=== PATIENT | female | born 1985 | race Caucasian/White ===

== ENCOUNTER 2023-04-16 15:17 | Inpatient (IN) | payer OTHER ==
[~2023-04-16] VITALS: Ht 139.7 cm; Wt 49.2 kg
[~2023-04-16 15:17] MED LIST: ALBU90OI INH; Ativan1 MG PO; B-1100 M1 PO; CEPH500 PO; DOCU100 PO; FOLI1 PO; FURO20 PO; LEVFLO500 PO; PANT40 PO; Prednisone10 MG PO; Prednisone50 MG PO; SM TUSSIN DM PO; SPIR25 PO; Vibramycin100 MG PO
[2023-04-16 16:08] LABS: BASOPHILS ABSOLUTE AUTO 0.05 K/mm3 (0.00-0.23); BASOPHILS PERCENT AUTO 1 % (0-2); EOSINOPHILS ABSOLUTE AUTO 0.12 K/mm3 (0.00-0.68); EOSINOPHILS PERCENT AUTO 1 % (0-6); Hematocrit 35.6 % (33.0-51.0); Hemoglobin 12.7 g/dL (11.5-16.0); IMMATURE GRAN PERCENT AUTO 2 % (0-1); LYMPHOCYTES ABSOLUTE AUTO 2.16 K/mm3 (0.84-5.20); LYMPHOCYTES PERCENT AUTO 20 % (21-46); MONOCYTES ABSOLUTE AUTO 0.52 K/mm3 (0.16-1.47); MONOCYTES PERCENT AUTO 5 % (4-13); Mean Corpuscular HGB 35.2 pg (26.0-34.0); Mean Corpuscular HGB Conc 35.7 g/dL (31.5-36.5); Mean Corpuscular Volume 99 fL (80-100); Mean Platelet Volume 10.9 fL (9.1-12.4); NEUTROPHILS ABSOLUTE AUTO 7.53 K/mm3 (1.96-9.15); NEUTROPHILS PERCENT AUTO 71 % (41-73); NRBC ABSOLUTE 0.02 K/mm3 (0.00-0.02); NRBC Auto 0.2 /100 WBC (0.0-0.2); Platelet Count 203 K/mm3 (150-400); RDW Coefficient Variation 16.9 % (11.7-14.2); RDW Standard Deviation 61.5 fL (35.1-46.3); Red Blood Cell Count 3.61 M/mm3 (3.80-5.20); White Blood Cell Count 10.58 K/mm3 (4.00-11.30)
[2023-04-16] MEDS ORDERED: Ativan1 MG PO (16:09)
[2023-04-16] MEDS ORDERED: FUROSEMIDE20 MG PO (16:10)
[2023-04-16 17:13] LABS: Albumin, Blood 2.4 g/dL (3.4-5.0); Albumin/Globulin Ratio 0.7 (0.8-1.8); Bilirubin, Total 1.2 mg/dL (0.1-1.0); Calcium, Blood 7.1 mg/dL (8.5-10.1); Creatinine, Blood 0.5 mg/dL (0.40-1.00); Globulin, Blood 3.5 g/dL (2.2-4.0); Potassium, Blood 2.2 mmol/L (3.5-5.5); Total Protein, Blood 5.9 g/dL (6.4-8.2)
[2023-04-16 20:26] LABS: Thyroid Stimulating Hormone 2.99 uIU/mL (0.360-4.800)
[2023-04-16 20:32] LABS: Magnesium, Blood 0.8 mg/dL (1.6-2.4)
[2023-04-16] MEDS ORDERED: CELEXA10 MG PO (21:05)
[2023-04-16] MEDS ORDERED: TRAZ50 PO (21:06)
[2023-04-16] MEDS ORDERED: Naltrexone HCl50 MG PO (21:06)
[2023-04-16 21:47] LABS: U Benzodiazapine Screen DETECTED
[2023-04-16 21:48] LABS: U Amphetamine Screen Not Detected; U Barbituate Screen DETECTED; U Buprenorphine Screen Not Detected; U Cannabinoids Screen Not Detected; U Cocaine Screen Not Detected; U Methadone Screen Not Detected; U Methamphetamine Screen Not Detected; U Opiates Screen Not Detected; U Oxycodone Screen Not Detected; U Phencyclidine Screen Not Detected; U Propoxyphene Screen Not Detected
[2023-04-16 21:54] VITALS: BP 95/77
[2023-04-16 22:00] VITALS: BP 101/83
[2023-04-16] MEDS ORDERED: EUTHYROX25 MC1 PO (22:08)
--- NOTE | 2023-04-16 22:58 | NUR ---
TRANSFER NOTE THIS RN RECEIVED REPORT FROM FARIBA THOMAS IN THE ED. PT AMBULATED FROM [facility] TO BED. PT IS A&O X4. PT ANSWERRED ALL QUESTIONS APPROPRIATELY, BUT TOOK A MINUTE TO COME UP WITH ANSWER. PT REPORT LAST DRINK BEING YESTERDAY 04/15/23, BUT STATES SHE HAS BEEN HAVING HALLUCINATIONS THE PAST SEVERAL DAYS AT HOME. PT DENIES HALLUCINATIONS AT THIS TIME. ONLY ANXIETY NOTED, WHICH PT HAS AT BASELINE; CIWA 4. SBP 90-100'S, MAP >65. NS AND KCL INFUSING PER EMAR. SINUS TACH ON MONITOR WITH HR 110-120'S; PT STATES HR IS HIGH "ALL THE TIME". PPP. ON RA WITH SPO2 >92%; WHEEZING NOTED; PT STATES HX OF COPD; DENIED NEEDING BREATING TREATMENTS AT THIS TIME. PT SBA TO BSC. SEIZURE PADS ON BED. BED ALARM ON FOR SAFETY. BED IN LOWEST POSITION AND CALL LIGHT WITHIN REACH.
[2023-04-16 23:46] VITALS: BP 90/72
[2023-04-17 01:35] LABS: Bun/Creatinine Ratio 3.4 (12.0-20.0); Calcium, Blood 6.3 mg/dL (8.5-10.1); Creatinine, Blood 0.58 mg/dL (0.40-1.00); Potassium, Blood 3.7 mmol/L (3.5-5.5)
[2023-04-17 03:39] VITALS: BP 91/68
[2023-04-17 05:17] LABS: BASOPHILS ABSOLUTE AUTO 0.05 K/mm3 (0.00-0.23); BASOPHILS PERCENT AUTO 1 % (0-2); EOSINOPHILS ABSOLUTE AUTO 0.16 K/mm3 (0.00-0.68); EOSINOPHILS PERCENT AUTO 2 % (0-6); Hematocrit 32.4 % (33.0-51.0); Hemoglobin 10.8 g/dL (11.5-16.0); IMMATURE GRAN ABSOLUTE AUTO 0.14 K/mm3 (0.00-0.10); IMMATURE GRAN PERCENT AUTO 2 % (0-1); LYMPHOCYTES ABSOLUTE AUTO 1.87 K/mm3 (0.84-5.20); LYMPHOCYTES PERCENT AUTO 27 % (21-46); MONOCYTES ABSOLUTE AUTO 0.42 K/mm3 (0.16-1.47); MONOCYTES PERCENT AUTO 6 % (4-13); Mean Corpuscular HGB 35.6 pg (26.0-34.0); Mean Corpuscular HGB Conc 33.3 g/dL (31.5-36.5); Mean Platelet Volume 11.2 fL (9.1-12.4); NEUTROPHILS ABSOLUTE AUTO 4.34 K/mm3 (1.96-9.15); NEUTROPHILS PERCENT AUTO 62 % (41-73); NRBC ABSOLUTE 0.03 K/mm3 (0.00-0.02); NRBC Auto 0.4 /100 WBC (0.0-0.2); Platelet Count 148 K/mm3 (150-400); RDW Coefficient Variation 17.6 % (11.7-14.2); RDW Standard Deviation 70.1 fL (35.1-46.3); Red Blood Cell Count 3.03 M/mm3 (3.80-5.20); White Blood Cell Count 6.98 K/mm3 (4.00-11.30)
--- NOTE | 2023-04-17 05:17 | NUR ---
SHIFT SUMMARY NO ACUTE CHANGES SINCE ARRIVAL TO UNIT. CIWA REMAINS 4. X1 EPISODE OF NAUSEA; MEDICATED PER EMAR. OTHERWISE ONLY ANIXETY REPORTED/OBSERVED. VITALS REMAIN STABLE AND UNCHANGED. NO CHANGES TO NEURO. CALLING APPROPRIATELY. BED ALARM ON FOR SAFETY. D5W1/2NS INFUSING PER EMAR. PT ABLE TO REPOSITION SELF IN BED INDEPENDENTLY. POOR URINE OUTPUT NOTED; BLADDER SCAN SHOWING 11MLS NOTED. ENCOURAGED PO INTAKE. BED IN LOWEST POSITION AND CALL LIGHT WITHIN REACH. THIS RN WILL REPORT TO ONCOMING DAYSHIFT RN.
[2023-04-17 05:24] LABS: Mean Corpuscular Volume 107 fL (80-100)
[2023-04-17 05:50] LABS: Albumin/Globulin Ratio 0.7 (0.8-1.8); Bilirubin, Total 0.8 mg/dL (0.1-1.0); Bun/Creatinine Ratio 3.8 (12.0-20.0); Calcium, Blood 6.5 mg/dL (8.5-10.1); Creatinine, Blood 0.53 mg/dL (0.40-1.00); Potassium, Blood 3.4 mmol/L (3.5-5.5)
[2023-04-17 05:52] LABS: Magnesium, Blood 1.1 mg/dL (1.6-2.4)
[2023-04-17 07:56] VITALS: BP 93/76
[2023-04-17 12:13] VITALS: BP 93/73
[2023-04-17 16:24] VITALS: BP 101/69
--- NOTE | 2023-04-17 18:36 | NUR ---
SHIFT SUMMARY PATIENT ALERT, ORIENTED, PLEASANT, COOPERATIVE. SEVERE ANXIETY AT BASELINE, TAKES 1 MG ATIVAN BID. CIWAS 4-12, MANAGING WITH LIBRIUM AND ATIVAN. POTASSIUM, MAG, AND CALCIUM ALL REPLACED THIS SHIFT. LR AT 125/HR. TYLENOL FOR HEADACHE. TOLERATING REGULAR DIET AND LIQUIDS. ROOM AIR. TACHY ANTOLIN WITH EXERTION. SOFT BP 90-100 SYSTOLIC. SBA TO BATHROOM. FREQUENT SMALL VOIDS, URGENCY. ABD FIRM AND DISTENDED. PATIENT REPORTS BASELINE FOR LAST SEVERAL MONTHS SINCE SHE RELAPSED WITH ETOH. SIGNIFICANT OTHER VISITED BRIEFLY DURING AFTERNOON. WILL REPORT TO INSPECTOR BALANCE TRUING RN.
[2023-04-17 19:13] VITALS: BP 109/97
--- NOTE | 2023-04-17 21:25 | NUR ---
AOS: PATIENT ALERT AND ORIENTED X 4 CURRENLTY NOT IN AN INCREASED CIWA STATE RECENT CIWA SCORE ON ASSUMPTION AT 1930 OF 6, SHE IS RECIECING A DOSE OF 1MG OF PO BID PRN . GIVEN SHE NORMALLY TAKES AT NIGHT. OF NOTE HR HAS BEEN SLOWLY INCREASING TO 120'S WHILE AT REST. DENIES CHEST PAIN PRESSURE OR SOB. PATIENT BLOOD PRESSURE SYSTOLIC IN THE 90'S WHICH APPEARS TO BE TREND. LR INFUSING AT 125 FOR A SECONG BAG. DENIES CHEST PAIN PRESSURE OR SOB. IS CRRENTLY RESTING PBC'S IN PLACE FOR DVT PROPHALAXIS. ABD IS SEVERELY DISTENDED FOR SIZEM ENDORES PREVIOUS NEED FOR PARACENTESIS IN THE PAST. WILL INFORM DAY TEAM.
[2023-04-18 00:15] VITALS: BP 107/73
[2023-04-18 03:30] VITALS: BP 102/72
--- NOTE | 2023-04-18 05:49 | NUR ---
EOS: CIWA HAS BEEN CONTROLLED WITH PROTOCOL SEE MAR. OF CONCERN ABD IS STILL DISTENDED, HEARTRATE HAS BEEN INCREASING WHILE AWAKE 130-140, WHILE MEDICATED AND SLEEPING 120'S. PATIENT DENIES INCREASED WITHDRAWAL SYMPTOMS. DENIES CHEST PAIN PRESSURE OR SOB. VSS MINUS HEARTRATE, AFEBRILE. RECOMMEND IMAGING OF ABDOMEN.
[2023-04-18 07:37] LABS: BASOPHILS ABSOLUTE AUTO 0.04 K/mm3 (0.00-0.23); BASOPHILS PERCENT AUTO 1 % (0-2); EOSINOPHILS ABSOLUTE AUTO 0.13 K/mm3 (0.00-0.68); EOSINOPHILS PERCENT AUTO 2 % (0-6); Hematocrit 29.4 % (33.0-51.0); Hemoglobin 9.8 g/dL (11.5-16.0); IMMATURE GRAN PERCENT AUTO 4 % (0-1); LYMPHOCYTES ABSOLUTE AUTO 1.68 K/mm3 (0.84-5.20); LYMPHOCYTES PERCENT AUTO 30 % (21-46); MONOCYTES ABSOLUTE AUTO 0.32 K/mm3 (0.16-1.47); MONOCYTES PERCENT AUTO 6 % (4-13); Mean Corpuscular HGB Conc 33.3 g/dL (31.5-36.5); Mean Corpuscular Volume 108 fL (80-100); Mean Platelet Volume 11.1 fL (9.1-12.4); NEUTROPHILS ABSOLUTE AUTO 3.22 K/mm3 (1.96-9.15); NEUTROPHILS PERCENT AUTO 58 % (41-73); NRBC ABSOLUTE 0.03 K/mm3 (0.00-0.02); NRBC Auto 0.5 /100 WBC (0.0-0.2); Platelet Count 132 K/mm3 (150-400); RDW Coefficient Variation 17.4 % (11.7-14.2); RDW Standard Deviation 69.5 fL (35.1-46.3); Red Blood Cell Count 2.72 M/mm3 (3.80-5.20); White Blood Cell Count 5.59 K/mm3 (4.00-11.30)
[2023-04-18 07:59] LABS: Albumin, Blood 1.8 g/dL (3.4-5.0); Albumin/Globulin Ratio 0.6 (0.8-1.8); Bilirubin, Total 0.4 mg/dL (0.1-1.0); Bun/Creatinine Ratio 7.9 (12.0-20.0); Calcium, Blood 7.1 mg/dL (8.5-10.1); Creatinine, Blood 0.51 mg/dL (0.40-1.00); Globulin, Blood 2.9 g/dL (2.2-4.0); Potassium, Blood 3.7 mmol/L (3.5-5.5); Total Protein, Blood 4.7 g/dL (6.4-8.2)
[2023-04-18 08:08] VITALS: BP 100/79
--- NOTE | 2023-04-18 08:46 | NUR ---
update pt mom, theresa, called for update. received verbal permission from pt to update mom on why she is here/update. Theresa updated. Stated she will call back this evening to get another update.
[2023-04-18 11:12] VITALS: BP 104/84
--- NOTE | 2023-04-18 11:20 | NUR ---
UPDATE MD AWARE OF PT'S HIGH HR
[2023-04-18 12:51] LABS: Magnesium, Blood 1.4 mg/dL (1.6-2.4)
[2023-04-18] MEDS ORDERED: MAGNESIUM OXID500 MG PO (14:49)
[2023-04-18] MEDS ORDERED: MULVITA PO (14:50)
[2023-04-18] MEDS ORDERED: CALCIUM CIT 311 EAC7 PO (14:51)
[2023-04-18 16:29] VITALS: BP 102/78
== END 2023-04-18 17:43 | disposition home or self-care (01) | DRG 897 ==
LOC: ER 15:17 → PCU 15:18
PROVIDERS: Emergency Medicine; Internal Medicine; Nurse Practitioner Acute Care; ADMIT Student in an Organized Health Care Education/Training Program
PROC: HZ2ZZZZ Detoxification Services for Substance Abuse Treatment (ICD-10-PCS; principal; 2023-04-16)
DX: F10.239 Alcohol dependence with withdrawal, unspecified (principal); F41.9 Anxiety disorder, unspecified; E83.51 Hypocalcemia; E87.6 Hypokalemia; E83.42 Hypomagnesemia; E03.9 Hypothyroidism, unspecified; E88.09 Other disorders of plasma-protein metabolism, not elsewhere classified; J44.9 Chronic obstructive pulmonary disease, unspecified; I10 Essential (primary) hypertension; K70.9 Alcoholic liver disease, unspecified; F17.210 Nicotine dependence, cigarettes, uncomplicated; Z88.0 Allergy status to penicillin; Z79.52 Long term (current) use of systemic steroids
CPT/HCPCS: 36415; 76705; 80048; 80053; 82330; 82607; 82746; 83690; 83735; 84443; 85025; 93005; 93010; 94640; 94664; 94760; 94762; 96365; 96366; 96375; 96376; 99285-25; A9270; J0612; J1650; J2060; J2405; J2560; J3475; J3480; J7030; J7042; J7050; J7120